=== PATIENT | male | born 1970 | race Caucasian/White ===

== ENCOUNTER 2021-03-14 09:55 | Outpatient (CLI) | payer MEDICARE, SELFPAY ==
[2021-03-14] VITALS (8 sets, daily range): BP systolic 131–148; BP diastolic 67–84; PULSE 56–78; RESP 12–16; O2SAT 95–98
--- NOTE | ~2021-03-14 | CT_ITS ---
EXAMINATION: XR_MY2+[id number], CT lumbar spine w con, CT cervical spine w con DATE: 03/14/2021 INDICATION: Cervical spondylosis with radiculopathy. Lumbar fusion. TECHNIQUE: Informed consent was obtained from the patient. Risks and benefits including bleeding, i nfection, spinal headache and nerve root injury were discussed with the patient. The patient agreed to proceed. Time out procedure was performed. Lumbar spine radiographs obtained immediately prior to the procedure were reviewed. An entry site was chosen at the L3-L4 level. A left paracentral approa ch was used. Standard sterile prep was done with Betadine. Entry site was infiltrated with 5 cc 1% lidocaine. A 3.5 22G spinal needle was then inserted into the spinal canal with spontaneous reflux of clear CSF. 10 mL Omnipaque 300 was then injected into the thecal sac with intermittent fluoroscop y confirming intrathecal administration. Frontal, lateral and oblique fluoroscopic images were acquired of the lumbar spine. The patient was t hen placed in a prone reverse Trendelenburg position with movement of the contrast bolus observed fro m the lumbar through the thoracic to the cervical spine with intermittent fluoroscopy. Additional fro ntal and lateral myelographic images were obtained. The patient was then transferred to CT scan for s piral CT myelogram of the cervical spine was obtained in the supine position. The patient was seated for 30 seconds and then placed in the prone position for additional CT mammogram of the lumbar spine. Following this patient was transferred to the postoperative recovery area for 2 hours of observatio n. There are no immediate complications. Coronal and sagittal reformatted images of the cervical an d lumbar spine CT were also created. The dose length product was 1276.64 mGy-cm for the lumbar spine and 506.24 mGy-cm for the cervical spine. For the fluoroscopic portion of the examination, 25 fluoro scopic images were obtained. Fluoroscopy exposure time was 1.7 minutes. Total DAP was 10.77 mGycm^2 COMPARISON: 06/06/2019 FINDINGS: Cervical spine: C5-C6 anterior spinal fusion which appear solidly fused with anterior plate and screw fixation. No in strumentation failure or lucency surrounding the screws to suggest loosening. There is straightening of the normal cervical lordosis both on the CT imaging in the supine position as well as on the fluor oscopic imaging with the patient in the right lateral decubitus position. No spondylolisthesis or fac et subluxation. Chronic minimal anterior wedging at T1. Unfused vertebral body heights are otherwise normal. No fracture. Normal alignment and mild osteoarthritis at the atlantoaxial articulation. Mild disc height loss at C6-C7 and T2-T3. Minimal disc height loss at C2-C3 through C4-C5. Small amount of atherosclerotic calcification at the bilateral carotid bulbs. Cervical soft tissues are otherwise un remarkable. Visualized apices of lungs are clear. The following disc levels are specifically discusse d: C2-C3: The disc does not extend beyond the endplate margin. There is no uncovertebral joint osteoarth ritis. There is mild bilateral facet joint osteoarthritis. There is no neural foraminal stenosis. The re is no central canal stenosis. C3-C4: Disc is mildly bulging with superimposed right paracentral disc protrusion. There is mild bila teral uncovertebral joint osteoarthritis. There is mild bilateral facet joint osteoarthritis. There i s mild bilateral neural foraminal stenosis. There is mild central canal stenosis with the right parac entral disc protrusion flattening the right ventral surface of the cord. C4-C5: The disc does not extend beyond the endplate margin. There is mild right uncovertebral joint o steoarthritis. There is mild bilateral facet joint osteoarthritis. There is no neural foraminal steno sis. There is no central canal stenosis. C5-C6: Disc space is fu
--- NOTE | ~2021-03-14 | XR_ITS ---
EXAMINATION:XR cervical spine 4-5V DATE: 03/14/2021 11:31 INDICATION: Cervical spondylosis with radiculopathy TECHNIQUE: AP, lateral, lateral flexion and lateral extension views of the cervical spine were obtain ed. COMPARISON: 06/06/2019 FINDINGS: Odontoid is intact. Normal atlantoaxial interval. Anterior spinal fusion with anterior plate and scr ew fixation at C5-C6. Unchanged 5 mm lumbar dextrocurvature. Sagittal alignment is normal with no spo ndylolisthesis and with normal motion at the unfused segments with flexion and extension. Vertebral b martin heights are normal. Unfused disc spaces are normal. Multilevel mild cervical facet and uncoverteb ral osteoarthritis. Small marginal at this chronic calcific lesion projecting over the bilateral cespedes tid bulbs. Prevertebral soft tissues are normal. IMPRESSION: 1. Solidly fused instrumented C5-C6 anterior spinal fusion. Normal sagittal alignment with normal deg ree of motion at the unfused segments with flexion and extension. Reviewed, dictated and finalized at location A. IMPRESSION: 1. Solidly fused instrumented C5-C6 anterior spinal fusion. Normal sagittal ali gnment with normal degree of motion at the unfused segments with flexion and ex tension.
--- NOTE | ~2021-03-14 | XR_ITS ---
EXAMINATION: XR lumbar spine min 4V DATE: 03/14/2021 11:31 INDICATION: Lumbar fusion. TECHNIQUE: 1. Standing AP and standing lateral views in neutral, flexion and extension were obtained. COMPARISON: None. FINDINGS: L5 laminectomy and L5-S1 posterior spinal fusion with bilateral vertical justin and pedicle screw fixati on. No evident instrumentation failure or lucency surrounding the screws to suggest loosening. Alignm ent is normal. Mild anterior wedging at T11 with 20% anterior vertebral body height loss. Minimal ant erior wedging at T12 and L1. Remaining lumbar vertebral body heights are normal. Mild disc height los s at T10-T11, T11-T12, L1-L2 and L5-S1. Minimal disc height loss at L2-L3 through L4-L5. Small endpla te osteophytes and mild sclerotic degenerative endplate changes at the anterior inferior endplate of L2. IMPRESSION: 1. L5 laminectomy and L4-L5 posterior spinal fusion in normal alignment and normal lumbar motion on f lexion and extension. 2. Minimal to mild spondylosis in the lumbar and lower thoracic spine. 3. Minimal to mild chronic-appearing anterior wedging at T11-L1. Reviewed, dictated and finalized at location A. IMPRESSION: 1. L5 laminectomy and L4-L5 posterior spinal fusion in normal alignment and nor mal lumbar motion on flexion and extension. 2. Minimal to mild spondylosis in the lumbar and lower thoracic spine. 3. Minimal to mild chronic-appearing anterior wedging at T11-L1.
[2021-03-14 10:37] LABS: Basophils Percent Auto 0.6 % (0.2-1.2); Eosinophils Absolute Auto 0.1 K/mm3 (0-0.3); Eosinophils Percent Auto 1.5 % (0-4.4); Hematocrit 44.2 % (42.0-52.0); Hemoglobin 14.2 g/dL (14.0-18.0); Immature Granulocyte Absolute 0.02 K/mm3 (0.00-0.031); Immature Granulocyte Percent A 0.3 % (0-0.5); Lymphocytes Absolute Auto 2.28 K/mm3 (0.9-3.2); Lymphocytes Percent Auto 33.1 % (18.3-44.2); Mean Corpuscular HGB Conc 32.1 g/dl (32-36); Mean Corpuscular Hemoglobin 27.2 pg (26-34); Mean Corpuscular Volume 84.7 fl (80-100); Monocytes Absolute Auto 0.6 K/mm3 (0.1-0.6); Monocytes Percent Auto 8.6 % (2.6-8.5); Neutrophils Absolute Auto 3.9 K/mm3 (1.3-6.7); Neutrophils Percent Auto 55.9 % (45.5-73.1); Platelet Count Result 273 k/mm3 (150-375); Red Blood Count 5.22 M/mm3 (4.6-6.20); Red Cell Distribution Width 12.5 % (11.5-14.5); White Blood Count 6.9 K/mm3 (4.5-10.0)
[2021-03-14 11:03] LABS: INR 0.9; Prothrombin Time 11.7 Seconds (11.1-14.7)
[2021-03-14 12:58] LABS: Glucose Point of Care 172 mg/dl (65-105)
== END 2021-03-14 14:40 | disposition home or self-care (01) ==
PROVIDERS: Radiology Diagnostic Radiology; PCP Internal Medicine; Visit Provider Neurological Surgery
DX: M47.22 Other spondylosis with radiculopathy, cervical region (principal); Z98.1 Arthrodesis status
CPT/HCPCS: 36415; 62305; 72050; 72110; 72126; 72132; 82948; 85025; 85610